=== PATIENT | male | born 1990 | race Caucasian/White ===

== ENCOUNTER → 2019-08-27 | Outpatient (CLI) | payer BC ==
[~2019-08-27] MED LIST: CRUTCH3 USE; HYDACE5 PO; NAPR500 PO; NAPR550 PO; Percocet 5-3251 EACH PO
== END | disposition home or self-care (01) ==
LOC: LAB SHORT 11:49 → PLD 11:49
DX: L30.9 Dermatitis, unspecified (principal)
CPT/HCPCS: 88305; 88312